=== PATIENT | female | born 1935 | race Caucasian/White ===

== ENCOUNTER → 2017-08-12 10:19 | Outpatient (CLI) | payer MEDICARE, OTHER, SELFPAY ==
--- NOTE | 2017-08-12 10:25 | MM_ITS ---
/MM Dig screening mamm BI w/CAD CAD Screening ORDERING PHYSICIAN : Rickey Caal MD PATIENT AGE: 82 years GENDER: Female COMPARISON: Previous mammograms: January 2014, December 2012 and 2011 and 2010 INDICATION: Routine screening mammogram 82-year-old. No hormones. No new complaints. His a previous right breast lumpectomy with radiation. Family history. Mother with breast cancer age 63 TECHNIQUE: Standard CC and MLO images were obtained. R2 CAD reviewed. . Additional axillary cc view right breast included ==== FINDINGS: Prominent asymmetry of the breast due to the Postradiation and lumpectomy changes right breast RIGHT BREAST: Prominent area of postsurgical / lumpectomy with radiation distortion at upper-outer quadrant right breast,. At the Deep axillary tail at the lumpectomy site there is a large dense area calcification as well as vascular clips in this region which appear stable.. .. . Diffuse stable skin thickening right breast unchanged since studies dating back to 2010 . LEFT BREAST:No significant new areas of concern. There are scattered a dense clearly benign calcified left breast. But also noted to small groupings loosely grouped left breast. These appear stable and cc view. Most notable located anteriorly medial retroareolar region. The other is just posterior to this towards more central breast. These Tiny punctate calcifications seen at both areas here at medial breast region is similar to 2013 & 2012 exam, cc view. Given this stability I believe follow-up would be adequate in this age patient,, but would encourage continued annual follow-up even in this age patient due to her history ===== IMPRESSION: 1. Stable bilateral mammogram. No new areas of significant concern 2. Prominent Post lumpectomy, & post radiation changes right breast again noted and overall stable. Long-standing diffuse post radiation skin thickening right breast stable 3. Stable small grouped benign-appearing punctate calcifications again noted at left breast... Warrant annual follow-up 4. Annual follow-up recommended a and should be emphasized/encouraged . BI-RADS Category: 2 Benign Finding(s) RECOMMENDED FOLLOW-UP: 1YR - 1 YEAR FOLLOW-UP (A letter has been sent to the patient regarding results of the study.) Knee
--- NOTE | 2017-08-12 10:25 | XR_ITS ---
XR DEXA axial skeleton HISTORY: ITS.REASON: POST MENOPAUSAL ORDERING PHYSICIAN: Rickey Caal MD PATIENT AGE: 82 years COMPARISON: 02/14/2013 FINDINGS: The BMD measured at the AP Spine L1-L4 is 0.770 g/cm squared with a T score of -3.4 . This is considered Osteoporotic according to the World Health Organization criteria. Fracture risk is high. Treatment is advised. The mean hip density has a T score of -2.1. The lumbar spine density has decreased 14% in the hip density has decreased by 12% compared to the previous study. IMPRESSION: Osteoporosis with high fracture risk. Treatment is advised. Recommend follow-up exam July 2018 to follow the course of treatment
== END ==
PROVIDERS: Family Provider Family Medicine; PCP Obstetrics & Gynecology; Visit Provider Family Medicine
DX: Z12.31 Encounter for screening mammogram for malignant neoplasm of breast (principal); Z78.0 Asymptomatic menopausal state
CPT/HCPCS: 77067; 77080

== ENCOUNTER → 2018-10-25 10:24 | Outpatient (CLI) | payer MEDICARE, OTHER, SELFPAY ==
--- NOTE | 2018-10-25 10:32 | MM_ITS ---
MM Dig screening mamm BI w/CAD ORDERING PHYSICIAN : Rickey Caal MD PATIENT AGE: 83 years GENDER: Female COMPARISON: December INDICATION: .Routine screening. Previous right lumpectomy and radiation right breast. Family history. Mother with breast cancer age 63. Noted on previous history sheet TECHNIQUE: Standard CC and MLO images were obtained. R2 CAD reviewed. Additional axillary cc view right breast FINDINGS: . Asymmetric breast with post surgery/and post radiation changes right breast from previous lumpectomy RIGHT BREAST: long-standing stable right breast changes. Again note the post lumpectomy right breast is smaller than the left. :Postsurgical/postradiation changes & distortion most evident upper-outer quadrant. Diffuse skin thickening is again again seen and against stable since studies dating back to 2010 Stable Focus of dense prominent calcification in the region of the lumpectomy at deep axillary tail.. Vascular clip at this region as well. LEFT BREAST: No definitive change. There there are a few scattered loosely grouped areas of very faint tiny punctate calcification seen at the central left breast, & retroareolar region is best seen on the cc view; more so than MLO view. These appear to be very similar & fairly stable since December 2012 & Jan 2014 mammogram. However would suggest follow-up in 6 months possibly with magnification views at that time to further confirm stable character in this high-risk patient IMPRESSION......... 1. Right breast. Stable. No new areas of concern. Previous lumpectomy & radiation changes. Smaller right breast unchanged.-since multiple prior studies. 2. Left breast. . There are scattered small clusters of faint tiny punctate calcifications. Most notable retroareolar region . However although likely stable since 2012 & 2013 but would suggest 6 month follow-up in this higher-risk patient . BI-RADS Category: 3 Probably Benign Finding Short Term Follow-up RECOMMENDED FOLLOW-UP: 6M 6 MONTH FOLLOW-UP Suggest follow-up LEFT mammogram 6 months (Mar/Apr 2018), & to include magnification views. (A letter has been sent to the patient regarding results of the study.)
--- NOTE | 2018-10-25 10:33 | XR_ITS ---
XR DEXA axial skeleton HISTORY: ITS.REASON: OSTEOPOROSIS ORDERING PHYSICIAN: Rickey Caal MD PATIENT AGE: 83 years COMPARISON: 08/12/2017 FINDINGS: The BMD measured at the L1-L4 is 0.753 g/cm squared with a T score of -3.6. This is considered osteoporotic according to the World Health Organization criteria. Fracture risk is high. Treatment is advised. The lumbar spine density has decreased by 2%. The mean hip density has a T score of -2.3 and is unchanged IMPRESSION: Osteoporosis with high fracture risk. Treatment is advised. Suggest follow-up exam September 2019
== END ==
PROVIDERS: PCP Family Medicine; Visit Provider Family Medicine
DX: Z12.31 Encounter for screening mammogram for malignant neoplasm of breast (principal); M81.0 Age-related osteoporosis without current pathological fracture
CPT/HCPCS: 77067; 77080